=== PATIENT | female | born 1995 | race American Indian/Alaskan Native ===

== ENCOUNTER 2018-01-22 14:27 | Emergency (ER) | payer OTHER ==
[2018-01-22 14:46] VITALS: BP 137/77
[2018-01-22] MEDS ORDERED: ULTRAM PO ONE (15:56)
--- NOTE | 2018-01-22 16:42 | XRay Report ---
FINAL REPORT EXAM: XR FOOT 3+V RT HISTORY: foot pain and fall TECHNIQUE: AP, oblique and lateral radiographs of the right foot. PRIORS: None. FINDINGS: No fracture. No dislocation. Normal mineralization. No soft tissue abnormality. IMPRESSION: No acute right foot abnormality.
--- NOTE | 2018-01-22 16:56 | Emergency Department Report ---
ED Lower Extremity HPI - General Chief Complaint: Extremity Injury, Lower Stated Complaint: RIGHT ANKLE PAIN Time Seen by Provider: 01/22/18 15:56 Source: patient Mode of arrival: Ambulatory Limitations: No Limitations - History of Present Illness Initial Comments: Patient's a 22-year-old female who complains of right ankle pain after jumping into the shallow end of the pool tooth 2 days ago pain described as 410 aching right lateral and plantar pain exacerbated by prolonged standing walk and flexing pain relieved offloading rest and open lacerations or abrasions no numbness or tingling no swelling Complaint: foot injury Onset/Timin -: days(s) Injury: Foot: Right Type of Injury: hyperextension Place: home Severity: moderate Severity scale (0 -10): 4 Improves With: rest Worsens With: weight bearing, movement, palpation Context: jumping Associated Symptoms: able to partially bear weight. denies: swelling, numbness , tingling - Related Data Previous Rx's Medication Instructions Recorded Last Taken Type Cyclobenzaprine [Flexeril] 10 mg PO BID PRN #20 tablet 01/22/18 Unknown Rx Naproxen 500 mg PO BID PRN #30 tablet 01/22/18 Unknown Rx Allergies Allergy/AdvReac Type Severity Reaction Status Date / Time No Known Allergies Allergy Unverified 01/22/18 14:45 ED Review of Systems ROS: Stated complaint: RIGHT ANKLE PAIN Other details as noted in HPI Constitutional: denies: chills, fever Eyes: denies: eye pain, eye discharge, vision change ENT: denies: ear pain, throat pain Respiratory: denies: cough, shortness of breath, wheezing Cardiovascular: denies: chest pain, palpitations Endocrine: no symptoms reported Gastrointestinal: denies: abdominal pain, nausea, diarrhea Genitourinary: denies: urgency, dysuria, discharge Musculoskeletal: myalgia. denies: back pain, joint swelling, arthralgia Skin: denies: rash, lesions Neurological: denies: headache, weakness, paresthesias Psychiatric: denies: anxiety, depression Hematological/Lymphatic: denies: easy bleeding, easy bruising ED Past Medical Hx - Past Medical History Previous Medical History?: No - Surgical History Past Surgical History?: Yes Hx Appendectomy: Yes - Social History Smoking Status: Never Smoker Substance Use Type: None - Medications Home Medications: Home Medications Medication Instructions Recorded Confirmed Last Taken Type Cyclobenzaprine [Flexeril] 10 mg PO BID PRN #20 tablet 01/22/18 Unknown Rx Naproxen 500 mg PO BID PRN #30 tablet 01/22/18 Unknown Rx ED Physical Exam - General Limitations: No Limitations General appearance: alert, in no apparent distress - Head Head exam: Present: atraumatic, normocephalic - Eye Eye exam: Present: normal appearance - ENT ENT exam: Present: mucous membranes moist - Neck Neck exam: Present: normal inspection - Respiratory Respiratory exam: Present: normal lung sounds bilaterally - Cardiovascular Cardiovascular Exam: Present: regular rate, normal rhythm. Absent: systolic murmur, diastolic murmur, rubs, gallop - GI/Abdominal GI/Abdominal exam: Present: soft, normal bowel sounds - Rectal Rectal exam: Present: deferred - Extremities Exam Extremities exam: Present: normal inspection, full ROM, tenderness (plantar regiont tenderness ), normal capillary refill. Absent: pedal edema, joint swelling, calf tenderness - Expanded Lower Extremity Exam Right Foot/Toe exam: Present: normal inspection, full ROM, tenderness, calcaneal tenderness. Absent: swelling, abrasion, laceration, ecchymosis, deformity, crepidus, dislocation, erythema, amputation, puncture wound, foreign body, tenderness at base of 5th metatarsal, nail avulsion, subungual hematoma Neuro vascular tendon exam: Present: no vascular compromise. Absent: pulse deficit, abnormal cap refill, motor deficit, sensory deficit, tendon deficit, extremity cold to touch, pallor, abnormal 2-point discrimination, foot drop, peroneal nerve deficit, significant pain with passive ROM of distal joint Gait: Positive: observed and limited by pain ED Course Vital Signs 01/22/18 14:43 Temperature 98.5 F Pulse Rate 93 H Respiratory 16 Rate Blood Pressure 137/77 O2 Sat by Pulse 99 Oximetry ED Lower Extremity MDM - Radiology Data Radiology results: report reviewed, image reviewed normal foot xray no soft tissue abnormality - Medical Decision Making Right foot x-ray normal no fracture no soft tissue abnormality no heel spurs pain is reproducible to plantar palpation with treated for plantar foot strain SANDRA, RICE, NSAIDs, fluid exercises elevation offloading temporarily patient followed PCP in 2-3 days return to ED his symptoms worsen patient verbalizes understanding and agreement with discharge we discharged plan. Hhome in stable condition at this time Critical care attestation.: If time is entered above; I have spent that time in minutes in the direct care of this critically ill patient, excluding procedure time. ED Disposition Clinical Impression: Plantar fasciitis of right foot Right foot strain Qualifiers: Encounter type: initial encounter Qualified Code(s): S96.911A - Strain of unspecified muscle and tendon at ankle and foot level, right foot, initial encounter Disposition: TO HOME OR SELFCARE Is pt being admited?: No Does the pt Need Aspirin: No Condition: Good Instructions: Plantar Fasciitis (ED), Ankle Exercises (GEN) Prescriptions: Cyclobenzaprine [Flexeril] 10 mg PO BID PRN #20 tablet PRN Reason: Muscle Spasm Naproxen 500 mg PO BID PRN #30 tablet PRN Reason: Pain Referrals: [facility] [Outside] - 3-5 Days Forms: Work/School Release Form(ED) Time of Disposition: 17:04
== END 2018-01-22 17:48 | disposition home or self-care (01) ==
LOC: ED 14:27
DX: S96.911A Strain of unspecified muscle and tendon at ankle and foot level, right foot, initial encounter (principal); M72.2 Plantar fascial fibromatosis; W16.92XA Jumping or diving into unspecified water causing other injury, initial encounter; Y93.89 Activity, other specified; Y92.89 Other specified places as the place of occurrence of the external cause; Y99.8 Other external cause status

== ENCOUNTER 2018-12-08 00:56 | Emergency (ER) | payer SELFPAY ==
[2018-12-08 01:15] VITALS: BP 114/71
== END 2018-12-08 01:15 | disposition left against medical advice (07) ==
LOC: ED 00:56
DX: R21 Rash and other nonspecific skin eruption (principal); Z53.21 Procedure and treatment not carried out due to patient leaving prior to being seen by health care provider

== ENCOUNTER 2022-01-19 13:29 | Emergency (ER) | payer SELFPAY ==
[2022-01-19 15:12] VITALS: BP 138/94
[2022-01-19 16:57] LABS: Basophils % (Auto) 0.6 % (0.0-1.8); Eosinophils % (Auto) 0.1 % (0.0-4.3); Hematocrit 41.1 % (30.3-42.9); Hemoglobin 13.9 gm/dl (10.1-14.3); Lymphocytes # (Auto) 2.4 K/mm3 (1.2-5.4); Lymphocytes % (Auto) 39.9 % (13.4-35.0); Mean Corpuscular HGB Conc 34 % (30-34); Mean Corpuscular Volume 101 fl (79-97); Monocytes # (Auto) 0.3 K/mm3 (0.0-0.8); Monocytes % (Auto) 4.8 % (0.0-7.3); Platelet Count 330 K/mm3 (140-440); Red Blood Count 4.09 M/mm3 (3.65-5.03); Red Cell Distribution Width 14.5 % (13.2-15.2)
[2022-01-19 17:14] LABS: Alanine Aminotransferase 90 units/L (7-56); Albumin 5.2 g/dL (3.9-5); BUN/Creatinine Ratio 6; Blood Urea Nitrogen 5 mg/dL (7-17); Calcium 10.3 mg/dL (8.4-10.2); Hemolysis Index 6
[2022-01-19] MEDS ORDERED: ONDANSETRON 4 MG/2 ML INJ IV ONE (20:38)
[2022-01-19] MEDS ORDERED: SODIUM CHLORIDE 0.9% 1000 ML 1,000 ML IV ONE (20:38)
--- NOTE | 2022-01-19 21:01 | XRay Report ---
ABDOMEN 1 VIEW INDICATION / CLINICAL INFORMATION: Unspecified abdominal pain. COMPARISON: None available. FINDINGS: TUBES / LINES: None. BOWEL GAS PATTERN: No significant abnormality. FREE AIR / EXTRALUMINAL GAS: None seen. ADDITIONAL FINDINGS: No significant additional findings. IMPRESSION: 1. No significant abnormality. Signer Name: Jameel Sanchez MD Signed: 01/19/2022 8:56 PM Workstation Name: [id number]
--- NOTE | 2022-01-19 21:32 | Emergency Department Report ---
ED General Adult HPI - General Chief complaint: Nausea/Vomiting/Diarrhea Stated complaint: VOMITTING/LIGHT HEADDED Time Seen by Provider: 01/19/22 20:35 Source: patient Mode of arrival: Ambulatory Limitations: No Limitations - History of Present Illness Initial comments: Patient 26-year-old female who presents for nausea vomiting with diarrhea x3 days. Patient states she ate nachos 3 days ago previous to symptoms starting. Patient denies fevers or chills, no history of Crohn's diverticulitis or no abdominal problems. Last menstrual cycle 2 weeks ago. Patient endorses not . Patient endorses 3/10 abdominal spasms intermittently. There is no abdominal pain. There is no shortness of breath patient states episode of dizziness today. Last p.o. intake was this afternoon liquids. Last bowel movement was 12 noon today roughly mild diarrhea. Has been no shortness of breath. Patient is not COVID vaccinated. Denies suspicious contacts or travel. Current symptoms are relieved by rest. Symptoms are exacerbated by p.o. intake. - Related Data Previous Rx's Medication Instructions Recorded Last Taken Type Cyclobenzaprine [Flexeril] 10 mg PO BID PRN #20 tablet 01/22/18 Unknown Rx Naproxen 500 mg PO BID PRN #30 tablet 01/22/18 Unknown Rx Ondansetron [Zofran Odt] 4 mg PO Q8HR PRN #12 tab.rapdis 01/19/22 Unknown Rx Allergies Allergy/AdvReac Type Severity Reaction Status Date / Time No Known Allergies Allergy Unverified 01/22/18 14:45 ED Review of Systems ROS: Stated complaint: VOMITTING/LIGHT HEADDED Other details as noted in HPI Constitutional: malaise. denies: chills, fever Eyes: denies: eye pain, eye discharge, vision change ENT: denies: ear pain, throat pain, congestion Respiratory: denies: cough, shortness of breath, wheezing Cardiovascular: denies: chest pain, palpitations Endocrine: no symptoms reported Gastrointestinal: nausea, vomiting, diarrhea, other (Intermittent abdominal spasms). denies: abdominal pain, constipation, melena Genitourinary: denies: urgency, dysuria, frequency, hematuria, discharge Musculoskeletal: denies: back pain, joint swelling, arthralgia Skin: denies: rash, lesions Neurological: vertigo. denies: headache, weakness, numbness, paresthesias, confusion Psychiatric: denies: anxiety, depression Hematological/Lymphatic: denies: easy bleeding, easy bruising ED Past Medical Hx - Past Medical History Previous Medical History?: Yes - Surgical History Hx Appendectomy: Yes - Social History Smoking Status: Former Smoker Substance Use Type: Alcohol, Marijuana - Medications Home Medications: Home Medications Medication Instructions Recorded Confirmed Last Taken Type Cyclobenzaprine [Flexeril] 10 mg PO BID PRN #20 tablet 01/22/18 Unknown Rx Naproxen 500 mg PO BID PRN #30 tablet 01/22/18 Unknown Rx Ondansetron [Zofran Odt] 4 mg PO Q8HR PRN #12 tab.rapdis 01/19/22 Unknown Rx ED Physical Exam - General Limitations: No Limitations General appearance: alert, in no apparent distress - Head Head exam: Present: normocephalic, normal inspection - Eye Eye exam: Present: EOMI Pupils: Present: normal accommodation - ENT ENT exam: Present: mucous membranes moist - Neck Neck exam: Present: normal inspection, full ROM. Absent: tenderness, lymphadenopathy - Respiratory Respiratory exam: Present: normal lung sounds bilaterally. Absent: respiratory distress, wheezes, stridor - Cardiovascular Cardiovascular Exam: Present: regular rate, normal rhythm, normal heart sounds. Absent: systolic murmur, diastolic murmur, rubs, gallop - GI/Abdominal GI/Abdominal exam: Present: soft, normal bowel sounds. Absent: distended, tenderness, guarding, rebound, rigid, bruit, hernia - Rectal Rectal exam: Present: deferred - Extremities Exam Extremities exam: Present: normal inspection, full ROM, normal capillary refill - Back Exam Back exam: Present: normal inspection, full ROM. Absent: CVA tenderness (R), CVA tenderness (L) - Neurological Exam Neurological exam: Present: alert, oriented X3, CN II-XII intact, normal gait - Expanded Neurological Exam Expanded Patient oriented to: Present: person, place, time Speech: Present: fluid speech Motor strength exam: RUE: 5, LUE: 5, RLE: 5, LLE: 5 Best Eye Response (Rama): (4) open spontaneously Best Motor Response (Magness): (6) obeys commands Best Verbal Response (Rama): (5) oriented Rama Total: 15 - Psychiatric Psychiatric exam: Present: normal affect, normal mood - Skin Skin exam: Present: warm, dry, intact, normal color. Absent: rash ED Course Vital Signs 01/19/22 15:11 Temperature 99.3 F Pulse Rate 101 H Respiratory 18 Rate Blood Pressure 138/94 [Left] O2 Sat by Pulse 99 Oximetry ED Medical Decision Making - Lab Data Result diagrams: 01/19/22 16:37 01/19/22 16:37 - Radiology Data Radiology results: report reviewed, image reviewed ABDOMEN 1 VIEW INDICATION / CLINICAL INFORMATION: Unspecified abdominal pain. COMPARISON: None available. FINDINGS: TUBES / LINES: None. BOWEL GAS PATTERN: No significant abnormality. FREE AIR / EXTRALUMINAL GAS: None seen. ADDITIONAL FINDINGS: No significant additional findings. IMPRESSION: 1. No significant abnormality. Signer Name: Jameel Sanchez MD Signed: 01/19/2022 8:56 PM Workstation Name: [id number] Transcribed By: MANI Dictated By: Jameel Sanchez MD Electronically Authenticated By: Jameel Sanchez MD Signed Date/Time: 01/19/222055 DD/ 55 TD/TT: - Medical Decision Making Patient 26-year-old female who presents for nausea vomiting with diarrhea x3 days. Patient states she ate nachos 3 days ago previous to symptoms starting. Patient denies fevers or chills, no history of Crohn's diverticulitis or no abdominal problems. Last menstrual cycle 2 weeks ago. Patient endorses not . Patient endorses 3/10 abdominal spasms intermittently. There is no abdominal pain. There is no shortness of breath patient states episode of dizziness today. Last p.o. intake was this afternoon liquids. Last bowel movement was 12 noon today roughly mild diarrhea. Has been no shortness of breath. Patient is not COVID vaccinated. Denies suspicious contacts or travel. Current symptoms are relieved by rest. Symptoms are exacerbated by p.o. intake Symptoms are improved KUB is normal normal gas pattern. Patient tolerating p.o. intake at this time without nausea vomiting. Patient denies abdominal pain or cramping at this time plan DC to home, prescriptions. Nausea. Hydrate as directed. Follow-up with primary care doctor in 2 to 3 days. Patient verbali zed agreement and understanding with discharge plan. Patient DC'd home in stable condition at this time. Critical care attestation.: If time is entered above; I have spent that time in minutes in the direct care of this critically ill patient, excluding procedure time. ED Disposition Clinical Impression: Nausea vomiting and diarrhea Disposition: HOME / SELF CARE / HOMELESS Is pt being admited?: No Does the pt Need Aspirin: No Condition: Stable Instructions: Nausea and Vomiting, Adult, [id number], Diarrhea, Adult, [id number] Additional Instructions: Take medications as prescribed, hydrate as directed. Follow-up with your doctor in 2 to 3 days. Return to emergency department should symptoms worsen. Prescriptions: Ondansetron [Zofran Odt] 4 mg PO Q8HR PRN #12 tab.rapdis PRN Reason: Nausea Referrals: CONSTANZA WOODSON MD [Staff Physician] - 3-5 Days Forms: Work/School Release Form(ED) Time of Disposition: 22:28
== END 2022-01-19 22:54 | disposition home or self-care (01) ==
LOC: ED 13:29
DX: R11.2 Nausea with vomiting, unspecified (principal); R19.7 Diarrhea, unspecified
CPT/HCPCS: 36415; 74018; 80053; 83690; 84703; 85025; 96361; 96374; 99284; J2405; J7030

== ENCOUNTER 2022-02-27 11:26 | Emergency (ER) | payer SELFPAY ==
[2022-02-27 11:44] VITALS: BP 130/90
--- NOTE | 2022-02-27 12:04 | Emergency Department Report ---
ED Lower Extremity HPI - General Chief Complaint: Extremity Injury, Lower Stated Complaint: LEFT KNEE/SWOLLEN Time Seen by Provider: 02/27/22 11:45 Source: patient Mode of arrival: Ambulatory Limitations: No Limitations - History of Present Illness Initial Comments: Patient is a pleasant 27-year-old that comes to the emergency room after twisting her knee while playing basketball. Her gait is limited by pain. She denies any other injury. She states she did not fall but she rotated her knee. Complaint: knee injury -: Sudden, hour(s) Place: home Severity: moderate Severity scale (0 -10): 4 Improves With: immobilization Worsens With: movement Context: other - Related Data Previous Rx's Medication Instructions Recorded Last Taken Type Ibuprofen [Motrin] 800 mg PO Q8HR PRN #30 tablet 02/27/22 Unknown Rx Allergies Allergy/AdvReac Type Severity Reaction Status Date / Time No Known Allergies Allergy Unverified 01/22/18 14:45 ED Review of Systems ROS: Stated complaint: LEFT KNEE/SWOLLEN Other details as noted in HPI Comment: All other systems reviewed and negative ED Past Medical Hx - Past Medical History Previous Medical History?: No - Surgical History Past Surgical History?: Yes Hx Appendectomy: Yes - Family History Family history: no significant - Social History Smoking Status: Never Smoker Substance Use Type: None - Medications Home Medications: Home Medications Medication Instructions Recorded Confirmed Last Taken Type Ibuprofen [Motrin] 800 mg PO Q8HR PRN #30 tablet 02/27/22 Unknown Rx ED Physical Exam - General Limitations: No Limitations General appearance: alert, in no apparent distress - Head Head exam: Present: atraumatic, normocephalic - Eye Eye exam: Present: normal appearance - ENT ENT exam: Present: mucous membranes moist - Neck Neck exam: Present: normal inspection - Respiratory Respiratory exam: Present: normal lung sounds bilaterally. Absent: respiratory distress - Cardiovascular Cardiovascular Exam: Present: regular rate, normal rhythm. Absent: systolic murmur, diastolic murmur, rubs, gallop - GI/Abdominal GI/Abdominal exam: Present: soft, normal bowel sounds - Extremities Exam Extremities exam: Present: normal inspection - Back Exam Back exam: Present: normal inspection - Neurological Exam Neurological exam: Present: alert, oriented X3 - Psychiatric Psychiatric exam: Present: normal affect, normal mood - Skin Skin exam: Present: warm, dry, intact, normal color. Absent: rash ED Course Vital Signs 02/27/22 11:41 Temperature 97.9 F Pulse Rate 91 H Respiratory 14 Rate Blood Pressure 130/90 O2 Sat by Pulse 96 Oximetry ED Lower Extremity MDM - Radiology Data Radiology results: report reviewed, image reviewed See report - Medical Decision Making Vital Signs (72 hours) 02/27/22 11:41 Temperature 97.9 F Pulse Rate 91 H Respiratory 14 Rate Blood Pressure 130/90 O2 Sat by Pulse 96 Oximetry X-ray noted. Patient placed in a knee immobilizer and on crutches. Patient educated on rice treatment. Patient is neurovascularly intact. Her ankle and hip exam are within normal limits. Peripheral vascular exam within normal limits. Patient being discharged home with discharge plan of care including diet, act ivity, medication and follow-up. She verbalizes understanding of plan of care - Differential Diagnosis Rule out fracture Critical care attestation.: If time is entered above; I have spent that time in minutes in the direct care of this critically ill patient, excluding procedure time. ED Disposition Clinical Impression: Knee strain Qualifiers: Encounter type: initial encounter Disposition: 01 HOME / SELF CARE / HOMELESS Is pt being admited?: No Does the pt Need Aspirin: No Condition: Stable Instructions: Acute Knee Pain, Adult Additional Instructions: REST ICE ELEVATE LEG IMMOBILIZER AND CRUTCHES FOR COMFORT FOLLOW UP WITH DR SYED IN 72 HOURS REFERRAL BELOW Prescriptions: Ibuprofen [Motrin] 800 mg PO Q8HR PRN #30 tablet PRN Reason: Pain, Moderate (4-6) Referrals: RUFUS SYED MD [Staff Physician] - 3-5 Days Forms: Work/School Release Form(ED) Time of Disposition: 12:40
--- NOTE | 2022-02-27 12:30 | XRay Report ---
XR knee 3V LT INDICATION / CLINICAL INFORMATION: PAIN COMPARISON: None available. FINDINGS: BONES / JOINT(S): No acute fracture or subluxation. No significant arthritis. No significant joint ef fusion. SOFT TISSUES: No significant abnormality. ADDITIONAL FINDINGS: None. IMPRESSION: No acute osseous findings in the left knee. Signer Name: Joby Daugherty MD Signed: 02/27/2022 12:25 PM Workstation Name: [id number]
== END 2022-02-27 14:00 | disposition home or self-care (01) ==
LOC: ED 11:26
DX: S76.912A Strain of unspecified muscles, fascia and tendons at thigh level, left thigh, initial encounter (principal); Z90.89 Acquired absence of other organs; X50.1XXA Overexertion from prolonged static or awkward postures, initial encounter; Y93.67 Activity, basketball; Y92.89 Other specified places as the place of occurrence of the external cause; Y99.8 Other external cause status
CPT/HCPCS: 99283